=== PATIENT | male | born 1970 | race Caucasian/White ===

== ENCOUNTER 2018-08-24 07:54 | Emergency (ER) | payer OTHER ==
[2018-08-24] MEDS: ONDANSETRON 4 MG INJ IV (08:35)
[2018-08-24] MEDS: HYDROmorphONE 1 MG/ML SYG IV (08:35)
[2018-08-24] MEDS: SOD CHLORIDE 0.9% 1,000 ML IV ×2 (08:37→11:29)
[2018-08-24 08:46] LABS: ADD MAN DIFF? NO
[2018-08-24 08:50] LABS: BASOPHILS % 0.3 % (0.0-2.0); EOSINOPHILS # 0.1 10^3/ul (0.0-0.5); EOSINOPHILS % 0.7 % (0.0-7.0); HEMATOCRIT 42.8 % (42.0-52.0); HEMOGLOBIN 14.1 g/dl (14.0-18.0); LYMPHOCYTES # 1.6 10^3/ul (0.8-2.9); LYMPHOCYTES % 10.8 % (15.0-51.0); MEAN CORPUSCULAR HEMOGLOBIN 27.1 pg (29.0-33.0); MEAN CORPUSCULAR HGB CONC 32.9 g/dl (32.0-37.0); MEAN CORPUSCULAR VOLUME 82.3 fl (82.0-101.0); MEAN PLATELET VOLUME 10.4 fl (7.4-10.4); MONOCYTE # 0.5 10^3/ul (0.3-0.9); MONOCYTES % 3.2 % (0.0-11.0); NEUTROPHIL # 12.9 10^3/ul (1.6-7.5); NEUTROPHILS % 84.4 % (39.0-77.0); PLATELET COUNT 347 10^3/UL (140-415); RED CELL DISTRIBUTION WIDTH 12.3 % (11.5-14.5)
[2018-08-24 08:50] LABS: WHITE BLOOD COUNT 15.2 10^3/ul (4.8-10.8)
[2018-08-24 09:11] LABS: ALANINE AMINOTRANSFERASE 19 IU/L (13-69); ALBUMIN/GLOBULIN RATIO 1.35; ALKALINE PHOSPHATASE 105 IU/L (42-121); AMYLASE 110 U/L (11-123); ANION GAP 13 (5-13); ASPARTATE AMINO TRANSFERASE 25 IU/L (15-46); BLOOD UREA NITROGEN 16 mg/dl (7-20); CALCIUM 9.9 mg/dl (8.4-10.2); CARBON DIOXIDE 28 mmol/L (21-31); CHLORIDE 100 mmol/L (97-110); CREATININE 1.01 mg/dl (0.61-1.24); Estimated GFR > 60 mL/min (>60); GLUCOSE 157 mg/dl (70-220); LIPASE 150 U/L (23-300); POTASSIUM 3.5 mmol/L (3.5-5.1); SODIUM 141 mmol/L (135-144); TOTAL PROTEIN 8.7 g/dl (6.1-8.1)
[2018-08-24 09:16] LABS: INR 0.85; PROTIME 11.7 Sec (11.9-14.9); PT RATIO 0.9
[2018-08-24 09:17] LABS: PARTIAL THROMBOPLASTIN TIME 23.7 Sec (23.0-35.0)
[2018-08-24 09:23] LABS: B-TYPE NATRIURETIC PEPTIDE 19 PG/ML (0-125); TROPONIN-I < 0.012 ng/ml (0.000-0.120)
[2018-08-24] MEDS: IOHEXOL 300MG/ML 150 ML BTL (10:01)
[2018-08-24] MEDS: SOD CHLORIDE 0.9% 100 ML (10:01)
[2018-08-24] MEDS: METOCLOPRAMIDE 10 MG INJ IV (11:29)
[2018-08-24] MEDS: KETOROLAC 30 MG INJ IV (11:29)
[2018-08-24 13:15] LABS: URINE BLOOD (Dip) POC Negative (NEGATIVE); URINE GLUCOSE (Dip) POC Negative (NEGATIVE); URINE KETONES (Dip) POC Negative (NEGATIVE); URINE LEUKOCYTE EST (Dip) POC Negative (NEGATIVE); URINE NITRITE (Dip) POC Negative (NEGATIVE); URINE TOTAL PROTEIN POC Negative (NEGATIVE)
== END 2018-08-24 13:00 | disposition home or self-care (01) ==
LOC: E/R 07:54
DX: K52.9 Noninfective gastroenteritis and colitis, unspecified (principal); I10 Essential (primary) hypertension; Z79.82 Long term (current) use of aspirin
CPT/HCPCS: 71045; 74177; 80053; 81003; 82150; 83690; 83880; 84484; 85025; 85610; 85730; 87040; 93005; 96374; 96375; 99285-25